=== PATIENT | female | born 1965 | race Caucasian/White ===

== ENCOUNTER 2023-12-14 15:48 | Emergency (ER) | payer BC, SELFPAY ==
[2023-12-14 15:50] VITALS: BP 154/98
[2023-12-14 16:24] LABS: % Basophils 0.5 % (0-2); % Eosinophils 0.9 % (0-6); % Immature Granulocytes 0.4 % (0-0.5); % Monocytes 8.3 % (1.7-9.3); % Neutrophils 79.9 % (42.2-75.2); Absolute Basophils 0.1 10^3/uL (0-0.2); Absolute Eosinophils 0.1 10^3/uL (0-0.7); Absolute Immature Granulocytes 0.1 10^3/uL (0-0.05); Absolute Lymphocytes 1.3 10^3/uL (1.2-3.4); Absolute Monocytes 1.1 10^3/uL (0.1-0.6); Absolute Neutrophils 10.4 10^3/uL (1.4-6.5); Hematocrit 43.6 % (37.0-47.0); Hemoglobin 15.3 g/dL (12.0-16.0); Mean Corp Hgb Conc. 35.1 g/dL (33.0-37.0); Mean Corpuscular Hgb 32.6 pg (27.0-31.0); Mean Corpuscular Volume 92.8 fL (81.0-99.0); Mean Platelet Volume 12.1 fL (7.4-10.4); Nucleated Red Blood Cells % 0 %; Platelet Count 231 10^3/uL (130-400); Red Cell Dist. Width 12.2 % (11.5-14.5); White Blood Cell Count 12.9 10^3/uL (4.8-10.8)
[2023-12-14 16:38] LABS: ALT (SGPT) 18 U/L (0-35); AST (SGOT) 17 U/L (14-36); Albumin 4.4 g/dl (3.5-5.0); Alkaline Phosphatase 95 U/L (38-126); Blood Urea Nitrogen 10 mg/dl (7-17); Calcium 9.5 mg/dl (8.4-10.2); Carbon Dioxide 21 mmol/L (22-30); Chloride 106 mmol/L (98-107); Glucose 108 mg/dl (70-99); Potassium 4.1 mmol/L (3.5-5.1); Sodium 135 mmol/L (135-145); Total Bilirubin 0.7 mg/dl (0.2-1.3); Total Protein 7.3 g/dl (6.3-8.2); eGFR > 60.00
[2023-12-14 18:21] VITALS: BP 118/83; BMI 30.2
[2023-12-14] MEDS: TORADOL 30 MG IV (19:19)
[2023-12-14] MEDS: ZOFRAN 4 MG IV (19:19)
--- NOTE | 2023-12-14 19:25 | ED.GENMED ---
History of Present Illness
General
Chief Complaint: Musculo-Skeletal Complaint
Source: patient and family
Exam Limitations: none
Time Seen by Provider: 12/14/23 18:46
Nursing documentation reviewed up to this point in time: agreed with
Travel History
Have you had any contact with someone who has COVID-19?: No
Do you have any symptoms of coronavirus? Fever > 100 degrees, chills, cough, shortness of breath, sore throat, loss of taste or smell, muscle aches, or headache?: No
History of Present Illness
History of Present Illness:
pt is a 58 y/o F right hand dominant
no chronic medical problems
here with right shoulder pain severe with any movement sine yesterday 4 pm
pt says at noon she had an appt with her pcp; her shoulder was mildly sore and she asked her dctor to give her a shot of cortisone which he has done before and she nver had any problems
but about 4 hours later she started to be unable to move the shoulder
she has severe pain and pain in to the bicep
she has had a little runny nose for a few days
Patient has tried ibuprofen, last dose was this morning. She cannot tolerate narcotics, all of them make her vomit.
Review of Systems
Review of Systems
Allergies reviewed?: Yes
All Other Systems: Not applicable
Phy Exam
Physical Exam
Physical Exam:
GENERAL: Alert uncomfortable,
HEAD: NCAT
CV: regular no murur
lungs: clear, no distress
NEUROLOGICAL: Alert and oriented, no focal neuro deficits, , 5/5 strength, sensation intact, reflexes intact
SKIN: Warm and dry, no wounds, bruising, pucnture, erythema to r shoulder
MUSCULOSKELETAL: Right shoulder normal inspection, patient has no significant tenderness to palpation, mild tenderness to the humeral head but severely limited. Full range of motion of the shoulder. I was able to flex the elbow at 90 and supinate
and pronate but any abduction and extension of the shoulder is producing a lot of pain. She does not have a trapezial spasm
PSYCH: Normal and appropriate interaction.
Course
Orders/Labs/Results
Orders:
Orders
12/14/23 15:57
CMP [Comprehensive Metabolic Panel] Urgent
Complete Blood Count/With Diff Urgent
12/14/23 19:10
Ketorolac [Toradol] 30 mg IV NOW STA
Ondansetron Injectable [Zofran] 4 mg IV NOW STA
12/14/23 19:20
COVID-19 Antigen Urgent
Source: Nasal Swab
Influenza A+B Rapid Molecular Urgent
UBD Source: Nasal Swab
Specimen Description:
12/14/23 20:36
Indomethacin [Indocin] 50 mg PO NOW STA
Abnormal Lab Results
12/14/23
15:57
WBC 12.9 H 10^3/uL
(4.8-10.8)
MCH 32.6 H pg
(27.0-31.0)
MPV 12.1 H fL
(7.4-10.4)
Abs Immat Gran (auto) 0.1 H 10^3/uL
(0-0.05)
Absolute Neuts (auto) 10.4 H 10^3/uL
(1.4-6.5)
Absolute Monos (auto) 1.1 H 10^3/uL
(0.1-0.6)
Neutrophils % 79.9 H %
(42.2-75.2)
Lymphocytes % 10.0 L %
(20.5-51.1)
Carbon Dioxide 21 L mmol/L
(22-30)
Glucose 108 H mg/dl
(70-99)
12/14/23 15:57
12/14/23 15:57
Vital Signs
Initial and Last Documented VS:
Initial Vital Signs
Temp Pulse Resp BP Pulse Ox
100.6 F H 106 18 154/98 98
12/14/23 15:50 12/14/23 15:50 12/14/23 15:50 12/14/23 15:50 12/14/23 15:50
Last Documented Vital Signs
Temp Pulse Resp BP Pulse Ox
99.1 F 93 18 118/83 96
12/14/23 18:21 12/14/23 18:21 12/14/23 18:21 12/14/23 18:21 12/14/23 18:21
MDM/Problems Addressed
Differential Diagnosis Includes:
Bursitis, calcific tendinitis, medication side effect, septic arthritis
MDM/Problems Addressed:
58-year-old female presents for severe right shoulder pain for hours starting after getting a cortisone injection from her primary care doctor into the shoulder joint. It was done posteriorly. She has not had any known fever however she had a
slight temperature on arrival. She has had a little bit of a URI recently. Patient had last Tylenol and Motrin earlier today which did not help pain. Her repeated temperatures have been normal. She is only had 1 that was elevated. On exam she
is severely limited painful range of motion of the right shoulder but normal inspection. I discussed the case with ED attending recommended I reach out to orthopedics. She is not plugged into Ortho currently but her sees Santosh so I
reached out to Dr. Kiran who suspected that this was a hypersensitivity reaction to the cortisone and very much less likely septic arthritis given the fact that it has been only 24 hours since the shot. Appreciate her white count of 12.9, we did
test for flu and COVID which were negative. She was given a dose of IV Toradol and looks much better. She does not tolerate narcotics and declined. He recommended indomethacin 50 mg twice daily which I wrote for 5 days and Tylenol as needed as
well. Return precautions given
*Critical Care Note
Total Time (30-74mins, 75-104mins- exclusive of procedures): Not Applicable
ED Attending Note
-
Portions of this chart may have been created with voice recognition software.� Occasional wrong word or��sound alike� substitutions may have occurred due to the inherent limitations of voice recognition software.
Discharge Plan
Departure
Patient Disposition: Home (Routine Discharge)
Date of Disposition: 12/14/23
Time of Disposition: 20:27
Patient with high blood pressure during this ER visit?: No
Condition: Fair
Covid-19: Not Applicable
Discharge Problem:
Acute shoulder pain
Instructions: Shoulder Pain (DC)
Prescriptions:
New
indomethacin 50 mg capsule
50 mg PO BID 5 Days Qty: 10 0RF
Referrals:
Hao Kiran MD [Active] - Follow up in 2-3 days
Ronny Bravo DO [Family Provider] -
Activity Restrictions/Additional Instructions:
YOUR SHOULDER PAIN COULD BE A HYPERSENSITIVITY RESPONSE TO THE INJECTION
TAKE INDOMETHACIN WITH FOOD TWICE A DAY STARTING TOMORROW FOR 5 DAYS
TYLENOL 1 GRAM 3 TIMES A DAY NEEDED FOR PAIN
FOLLOW UP WITH ORTHO ON SUNDAY, CALL FOR AN APPOINTMENT
RETURN FOR: SEVERE WORSENING PAIN, FEVER, SKIN CHANGES OR ANYC ONCERNS
Interventions
Interventions:
*Risk Screen - Suicide Last Done: 12/14/23 18:21
*General Assessment Last Done: 12/14/23 15:50
*Neglect/Abuse Screening Last Done: 12/14/23 18:21
*ED COVID-19 Vaccine History Last Done: 12/14/23 15:50
*Nursing Disposition Last Done: 12/14/23 20:51
ED-Musculoskeletal Assessment Last Done: 12/14/23 18:21
Discharge Date and Time
Discharge Date/Time: 12/14/23 20:52
[2023-12-14 19:58] LABS: COVID-19 Antigen Negative (Negative)
== END 2023-12-14 20:52 | disposition home or self-care (01) ==
LOC: EMR 15:48
PROVIDERS: Emergency Medicine; Physician Assistant; EMERGENCY PHYSICIAN Student in an Organized Health Care Education/Training Program; FAMILY PHYSICIAN Family Medicine
DX: M25.511 Pain in right shoulder (principal); Z11.52 Encounter for screening for COVID-19
CPT/HCPCS: 99284; 96374; 96375; 80053; 85025; 87502; 87811